=== PATIENT | male | born 1975 | race Caucasian/White ===

== ENCOUNTER 2020-09-20 18:17 | Emergency (ER) | payer BC ==
[2020-09-20 18:33] VITALS: TEMP 97.5; BMI 28.5
[2020-09-20 19:21] LABS: BASO % 1.2 % (0-2.0); EOS % 2.4 % (0-4.5); HEMATOCRIT 39.4 % (35.4-49); HEMOGLOBIN 13.3 GM/dL (11.7-16.9); MCH 30.1 pg (25.7-33.7); MCHC 33.7 g/dl (32.0-35.9); MEAN CELL VOLUME 89.3 fl (80-96); MEAN PLT VOLUME 8.7 fl (7.5-11.1); MONO % 5.4 % (3.8-10.2); PLATELET COUNT 253 K/MM3 (134-434); RBC 4.42 M/mm3 (4.00-5.60); RDW 13.4 % (11.9-15.9); WHITE BLOOD COUNT 5.4 K/mm3 (4.0-10.0)
[2020-09-20 19:37] LABS: CHLORIDE 105 mmol/L (98-107); POTASSIUM 3.6 mmol/L (3.5-5.1); SODIUM 138 mmol/L (136-145)
[2020-09-20 19:39] LABS: CALCIUM 9.1 mg/dL (8.5-10.1)
[2020-09-20 19:40] LABS: ANION GAP 5 MMOL/L (8-16); BLOOD UREA NITROGEN 14.3 mg/dL (7-18); CO2 28 mmol/L (21-32); GLUCOSE,RANDOM 144 mg/dL (74-106)
[2020-09-20 19:43] LABS: CREATININE 0.9 mg/dL (0.55-1.3); SGOT/AST 21 U/L (15-37); SGPT/ALT 24 U/L (13-61)
[2020-09-20 19:45] LABS: BILIRUBIN,TOTAL 0.7 mg/dL (0.2-1); TOT PROT 7.3 g/dl (6.4-8.2)
[2020-09-20 19:46] LABS: ALK PHOS 45 U/L (45-117)
[2020-09-20 22:53] LABS: CHOLESTEROL 209 mg/dL (50-200)
[2020-09-20 22:54] LABS: LDL CHOLESTEROL (ONLY SJRH) 111 mg/dL (5-100); TRIGLYCERIDES 51 mg/dL (0-150)
[2020-09-20 22:56] LABS: HDL CHOLESTEROL 79 mg/dL (40-60)
[2020-09-20 23:01] VITALS: BP 105/62; PULSE 56
== END 2020-09-20 23:17 | disposition home or self-care (01) ==
LOC: JER 18:17
DX: R07.9 Chest pain, unspecified (principal)
CPT/HCPCS: 36415; 71046-TC-FY; 80053; 80061; 82550; 82553; 83721; 83735; 84484; 85025; 93005; 93010; 99285-25